=== PATIENT | female | born 1940 | race Caucasian/White ===

== ENCOUNTER → 2016-05-31 | Outpatient (CLI) | payer OTHER, BC ==
[~2016-05-31] VITALS: Ht 162.6 cm; Wt 74.8 kg
[~2016-05-31] MED LIST: ASPIRIN81 M2 PO; BIOTIN1000 MICRO PO; BUTALB-APAP-CA1 EACH PO; CALCIUM 500 WI1 EAC2 PO; CARBAMAZEPINE100 M2 PO; GREEN TEA250 MG PO; MULTIPLE VITAM1 EACH PO; OMEPRAZOLE20 MG PO; STOOL SOFTENER100 MG PO; ZIAC 10/6.251 TABLET PO
[2016-05-31 14:26] LABS: HEMATOCRIT 36.1 % (36.0-46.0); MCH 25.8 PG (29.0-34.0); MCHC 33.5 G/DL (30.0-36.0); PLATELET COUNT 180 K/uL (156-360); RBC DIS.WIDTH-SD 47.7 % (39-53); RED BLOOD COUNT 4.69 M/uL (3.80-5.20); WHITE BLOOD COUNT 5.6 K/uL (4.1-10.2)
[2016-05-31 14:41] LABS: ANION GAP 11 MEQ/L (2-14); CHLORIDE 88 MEQ/L (99-109); POTASSIUM 3.6 MEQ/L (3.7-5.4); SAMPLE HEMOLYSIS CHECK 0; SAMPLE ICTERIC CHECK 0; SAMPLE LIPEMIA CHECK 0; SODIUM 126 MEQ/L (136-147)
[2016-05-31 14:46] LABS: GFR ESTIMATE (CALCULATED) > 59 mL/min/; GLUCOSE 88 mg/dL (70-99); UREA NITROGEN (BUN) 10 mg/dL (9-23)
== END | disposition home or self-care (01) ==
LOC: AMB 13:18
PROVIDERS: Anesthesiology
DX: D50.9 Iron deficiency anemia, unspecified (principal); E85.9 Amyloidosis, unspecified; K31.7 Polyp of stomach and duodenum; K29.70 Gastritis, unspecified, without bleeding; K63.89 Other specified diseases of intestine; R01.1 Cardiac murmur, unspecified; K21.9 Gastro-esophageal reflux disease without esophagitis; Z85.43 Personal history of malignant neoplasm of ovary
CPT/HCPCS: 80048; 85027; 88305; 88342 TC; B4087

== ENCOUNTER 2017-03-28 02:09 | Observation (INO) | payer OTHER, BC ==
[~2017-03-28] VITALS: Ht 162.6 cm; Wt 73.9 kg
[2017-03-28 02:39] LABS: HEMATOCRIT 35.1 % (36.0-46.0); MCH 26.5 PG (29.0-34.0); MCHC 32.5 G/DL (30.0-36.0); MCV 81.4 FL (83-99); PLATELET COUNT 180 K/uL (156-360); RBC DIS.WIDTH-CV 13.8 % (11.8-14.6); RBC DIS.WIDTH-SD 41.1 % (39-53); RED BLOOD COUNT 4.31 M/uL (3.80-5.20); WHITE BLOOD COUNT 8.3 K/uL (4.1-10.2)
[2017-03-28 02:52] LABS: CHLORIDE 102 mEq/L (99-109); POTASSIUM 4.1 mEq/L (3.7-5.4); SODIUM 136 mEq/L (136-147)
[2017-03-28 02:53] LABS: GLUCOSE 102 mg/dL (70-99)
[2017-03-28 02:57] LABS: ANION GAP 12 MEQ/L (2-14); GFR ESTIMATE (CALCULATED) > 59 mL/min/
[2017-03-28 02:58] LABS: UREA NITROGEN (BUN) 11 mg/dL (9-23)
[2017-03-28 03:01] LABS: TROP-I INTERPRETATION NEGATIVE; TROPONIN-I 0.01 ng/mL (0.0-0.30)
[2017-03-28] MEDS ORDERED: AMIODARONE HCL200 MG PO (03:49)
[2017-03-28] MEDS ORDERED: ELIQUIS5 MG PO (03:50)
[2017-03-28] MEDS ORDERED: LOPRESSOR25 MG PO (03:50)
[2017-03-28 05:49] VITALS: BP 148/91
[2017-03-28 08:00] VITALS: BP 147/81
[2017-03-28] MEDS ORDERED: TRAMADOL HCL50 MG PO (08:40)
[2017-03-28] MEDS ORDERED: [UNRECOGNIZED DRUG - OTHER] IJ (08:45)
[2017-03-28 11:50] VITALS: BP 127/81
[2017-03-28 13:18] LABS: TROP-I INTERPRETATION NEGATIVE; TROPONIN-I 0.02 ng/mL (0.0-0.30)
[2017-03-28] MEDS ORDERED: LOPRESSOR50 MG PO ×2 (14:35→14:38)
[2017-03-28] MEDS ORDERED: CORDARONE200 MG PO (14:38)
== END 2017-03-28 16:05 | disposition home or self-care (01) ==
LOC: EME 02:09 → 4EAST 03:57 → EDOF 03:57 → 4EAST 03:57 → ENRESERV 03:58 → 4EAST 05:13
PROVIDERS: Internal Medicine
DX: I48.0 Paroxysmal atrial fibrillation (principal); I48.2 Chronic atrial fibrillation; I25.10 Atherosclerotic heart disease of native coronary artery without angina pectoris; Z95.2 Presence of prosthetic heart valve; I10 Essential (primary) hypertension; E78.5 Hyperlipidemia, unspecified; R94.31 Abnormal electrocardiogram [ECG] [EKG]; Z95.1 Presence of aortocoronary bypass graft; Z82.49 Family history of ischemic heart disease and other diseases of the circulatory system; Z88.2 Allergy status to sulfonamides; K21.9 Gastro-esophageal reflux disease without esophagitis; D64.9 Anemia, unspecified; Z79.82 Long term (current) use of aspirin; Z79.01 Long term (current) use of anticoagulants; Z88.1 Allergy status to other antibiotic agents; Z88.6 Allergy status to analgesic agent; Z88.8 Allergy status to other drugs, medicaments and biological substances
CPT/HCPCS: 71020; 80048; 83735; 83880; 84443; 84484; 85027; 93005; 99281; 99284; G0378; J7050